=== PATIENT | female | born 1995 ===

== ENCOUNTER 2017-02-14 16:08 | Emergency (ER) | payer SELFPAY ==
[2017-02-14] MEDS ORDERED: AMOXicillin 250 MG CAP ONE (16:23)
[2017-02-14] MEDS ORDERED: Dexamethasone 4 mg/ml Vial ONE (16:23)
== END 2017-02-14 16:43 | disposition home or self-care (01) ==
LOC: BURERS 16:08
DX: J20.9 Acute bronchitis, unspecified (principal); F41.9 Anxiety disorder, unspecified; F32.9 Major depressive disorder, single episode, unspecified
CPT/HCPCS: 99282; J1100